=== PATIENT | male | born 1940 | race Caucasian/White ===

== ENCOUNTER 2017-03-14 15:40 | Emergency (ER) | payer OTHER ==
[~2017-03-14] VITALS: Ht 170.2 cm; Wt 68.0 kg
[2017-03-14 17:42] VITALS: BP 132/86
== END 2017-03-14 17:42 | disposition home or self-care (01) ==
LOC: ER 15:40
DX: H92.21 Otorrhagia, right ear (principal); F32.9 Major depressive disorder, single episode, unspecified; K59.00 Constipation, unspecified; I25.2 Old myocardial infarction; Z95.5 Presence of coronary angioplasty implant and graft

== ENCOUNTER → 2017-06-22 | Outpatient (CLI) | payer OTHER ==
--- NOTE | ~2017-06-22 | EXE ---
[facility] [place] [address] STRESS ECHOCARDIOGRAM Name: CLARITZA TROY Room #: REG [facility]WORK[facility] [id number] Admission: 06/22/17 Attend Phys: Jamel Gaxiola MD Discharge: Date of : 42 Date of Service: 06/22/17 1024 Report #: [id number] THIS REPORT FOR: //name// APPROVED REPORT Exam: Stress Echocardiogram Indication: CAD , Hyperlipidemia, Hypertension Patient Location: Out-Patient Stress Nurse: Melina Lorenz RN Room #: Echo lab Ht: 5 ft 7 in HR: 61 bpm BP: 118/76 mmHg Medical History Medical History: Diabetes, HTN, Hyperlipidemia, CAD s/p stent Cardiac Risk Factors: HTN, Hyperlipidemia, DM, , Tobacco History (Former) Previous Cardiac Procedures: PCI Exercise History: Indeterminate Procedure The patient underwent an Exercise Stress Test using the Brenton Protocol. Blood pressure, heart rate, and EKG were monitored. An Echocardiogram was performed by geothermal hvac technician in four stages in quad fashion. At peak stress, four selected images were obtained and placed side by side with resting images for comparison. Stress Test Details Stress Test: Exercise stress testing was performed using a Brenton protocol. HR Resting HR: 61 bpm Max Heart Rate (APMHR): 144 bpm Max HR Achieved: 153 bpm Target HR (85% APMHR): 122 bpm % of APMHR: 106 Recovery HR: 85 bpm HR response to stress: Normal HR response to stress BP Resting BP: 118/76 mmHg Max BP: 150/78 mmHg Recovery BP: 118/70 mmHg ECG Resting ECG: Sinus Rhythm [facility] [address] [place] [address] STRESS ECHOCARDIOGRAM Name: PARAMJITSHORTYCLARITZA Leila Room #: REG CL [facility]#: [id number] Admission: 06/22/17 Attend Phys: Jamel Gaxiola MD Discharge: Date of : 42 Date of Service: 06/22/17 [facility] Report #: [id number] Stress ECG: Sinus Rhythm, nonspecific ST-T abnormalities ST Change: Non-ischemic Clinical Reason for Termination: Maximal effort Exercise duration: 9 min 32 sec Highest Stage Achieved: Stage 4: 4.2 mph at 16% grade. Exercise capacity: 11.8 METs Pre-Stress Echo The resting Echocardiogram showed normal left ventricular contractility with an estimated Ejection Fraction of about 55%. Normal wall motion in all segments on baseline images. Post-Stress Echo The stress Echocardiogram showed normal left ventricular contractility with an estimated Ejection Fraction of about 65%. Normal augmentation of wall motion in all segments on post stress images. Clinical Normal augmentation of myocardial wall segments using a 17 segment model. Conclusion Clinical Response: Non-ischemic Exercise Capacity: Average Stress ECG Response: Non-ischemic Stress Echo Images: Non-ischemic No clinical, EKG or echocardiographic evidence for ischemia. Other Information Study Quality: Good <Conclusion> No clinical, EKG or echocardiographic evidence for ischemia. <ELECTRONICALLY SIGNED> By: Jamel Gaxiola MD 06/22/17 1024 1024 1024 Jamel Gaxiola MD /INF
== END ==
LOC: CV 08:04
DX: I25.10 Atherosclerotic heart disease of native coronary artery without angina pectoris (principal); I10 Essential (primary) hypertension; E78.5 Hyperlipidemia, unspecified

== ENCOUNTER → 2017-12-25 | Outpatient (CLI) | payer OTHER ==
--- NOTE | ~2017-12-25 | 2DMMODE ---
[facility] [place] [address] 2 D/M-MODE ECHOCARDIOGRAM Name: CLARITZA TROY Room #: REG CL [facility]#: [id number] Admission: 12/25/17 Attend Phys: Jamel Gaxiola MD Discharge: Date of : 42 Date of Service: 12/25/17 1347 Report #: [id number] THIS REPORT FOR: //name// APPROVED REPORT Study performed: 12/25/2017 13:03:41 EXAM: Comprehensive 2D, Doppler, and color-flow Echocardiogram Patient Location: Out-Patient Status: routine BSA: 1.78 HR: 84 bpm BP: 134/72 mmHg Rhythm: NSR Other Information Study Quality: Adequate Indications Hypertension. Hx: CAD, stent, CM, DM, HLP 2D Dimensions RVDd: 32.80 mm LVEF(%): 66.76 (>50%) IVSd: 11.31 (7-11mm) LVOT Diam: 21.51 (18-24mm) LVDd: 41.85 mm PWd: 11.29 (7-11mm) Ascending Ao: 32.13 (22-36mm) LVDs: 26.54 (25-40mm) Aortic Root: 35.66 mm Love's LVEF: 66.76 % Volumes Left Atrial Volume (Systole) Single Plane 4CH: 23.68 mL Single Plane 2CH: 19.34 mL LA ESV Index: 14.00 mL/m2 Aortic Valve AoV Peak Leroy.: 1.23 m/s AO Peak Gr.: 6.09 mmHg LVOT Max P.19 mmHg LVOT Max V: 0.89 m/s BRENDA Vmax: 2.63 cm2 Mitral Valve E/A Ratio: 0.8 MV Decel. Time: 257.62 ms [facility] [place] [address] 2 D/M-MODE ECHOCARDIOGRAM Name: CLARITZA TROY Room #: REG [facility]#: [id number] Admission: 12/25/17 Attend Phys: Jamel Gaxiola MD Discharge: Date of : 42 Date of Service: 12/25/17 1347 Report #: [id number] MV E Max Leroy.: 0.70 m/s MV A Leroy.: 0.92 m/s MV PHT: 74.71 ms IVRT: 76.12 ms Pulmonary Valve PV Peak Leroy.: 1.20 m/s PV Peak Gr.: 5.74 mmHg Pulmonary Vein P Vein S: 0.81 m/s P Vein A: 0.35 m/s P Vein D: 0.45 m/s P Vein A Dur.: 96.9 msec P Vein S/D Ratio: 1.80 Tricuspid Valve TR Peak Leroy.: 2.42 m/s RAP Estimate: 5.00 mmHg TR Peak Gr.: 23.47 mmHg PA Pressure: 28.00 mmHg Left Ventricle The left ventricle is normal size. There is normal left ventricular wall thickness. Left ventricular systolic function is normal. LVEF is 55%. Mild diastolic dysfunction is present (impaired relaxation pattern). Right Ventricle The right ventricle is normal size. The right ventricular systolic function is normal. Atria The left atrium size is normal. The right atrium size is normal. Aortic Valve Aortic valve leaflets are mildly thickened. No aortic regurgitation is present. There is no aortic valvular stenosis. Mitral Valve The mitral valve is normal in structure. Trace mitral regurgitation. Tricuspid Valve The tricuspid valve is normal in structure. Trace tricuspid regurgitation. Estimated PAP is 25-30mmHg. Pulmonic Valve The pulmonary valve is normal in structure. Trace pulmonic [address] [address] 2 D/M-MODE ECHOCARDIOGRAM Name: CLARITZA TROY Room #: REG CL Jeremy#: [id number] Admission: 12/25/17 Attend Phys: Jamel Gaxiola MD Discharge: Date of : 42 Date of Service: 12/25/17 1347 Report #: [id number] regurgitation. Great Vessels The aortic root is normal in size. The ascending aorta is normal in size. IVC is normal in size and collapses >50% with inspiration. Pericardium There is no pericardial effusion. <Conclusion> The left ventricle is normal size. There is normal left ventricular wall thickness. Left ventricular systolic function is normal. Mild diastolic dysfunction is present (impaired relaxation pattern). The right ventricle is normal size. The left atrium size is normal. There is no aortic valvular stenosis. Trace mitral regurgitation. Trace tricuspid regurgitation. Estimated PAP is 25-30mmHg. <ELECTRONICALLY SIGNED> By: Jamel Gaxiola MD 12/25/17 1347 1347 134 Jamel Gaxiola MD /INF
== END ==
LOC: CV 12:59
DX: I11.0 Hypertensive heart disease with heart failure (principal); I50.30 Unspecified diastolic (congestive) heart failure; I25.10 Atherosclerotic heart disease of native coronary artery without angina pectoris; E11.9 Type 2 diabetes mellitus without complications; E78.5 Hyperlipidemia, unspecified

== ENCOUNTER → 2019-12-13 | Outpatient (CLI) | payer OTHER | LOC: SJCVCIMAG 14:00 | DX: R94.31 Abnormal electrocardiogram [ECG] [EKG] (principal); I25.10 Atherosclerotic heart disease of native coronary artery without angina pectoris; I10 Essential (primary) hypertension; E78.00 Pure hypercholesterolemia, unspecified; E11.9 Type 2 diabetes mellitus without complications; Z88.1 Allergy status to other antibiotic agents; Z88.8 Allergy status to other drugs, medicaments and biological substances; Z79.82 Long term (current) use of aspirin; Z79.84 Long term (current) use of oral hypoglycemic drugs; Z79.899 Other long term (current) drug therapy; Z87.891 Personal history of nicotine dependence ==

== ENCOUNTER → 2020-06-11 | Outpatient (CLI) | payer OTHER | LOC: SJCVCIMAG 12:36 | PROVIDERS: ATTEND Internal Medicine Cardiovascular Disease | DX: R00.1 Bradycardia, unspecified (principal); R94.31 Abnormal electrocardiogram [ECG] [EKG]; I25.10 Atherosclerotic heart disease of native coronary artery without angina pectoris; I10 Essential (primary) hypertension; E78.00 Pure hypercholesterolemia, unspecified; E11.9 Type 2 diabetes mellitus without complications; Z79.82 Long term (current) use of aspirin; Z79.899 Other long term (current) drug therapy; Z82.49 Family history of ischemic heart disease and other diseases of the circulatory system; Z87.891 Personal history of nicotine dependence ==

== ENCOUNTER → 2020-12-15 | Outpatient (CLI) | payer OTHER | LOC: SJCVC 09:26 | PROVIDERS: ATTEND Internal Medicine Cardiovascular Disease | DX: R94.31 Abnormal electrocardiogram [ECG] [EKG] (principal); I25.10 Atherosclerotic heart disease of native coronary artery without angina pectoris; I10 Essential (primary) hypertension; E78.00 Pure hypercholesterolemia, unspecified; E11.9 Type 2 diabetes mellitus without complications; Z88.2 Allergy status to sulfonamides; Z88.8 Allergy status to other drugs, medicaments and biological substances; Z79.82 Long term (current) use of aspirin; Z79.84 Long term (current) use of oral hypoglycemic drugs; Z79.899 Other long term (current) drug therapy; Z87.891 Personal history of nicotine dependence; Z98.890 Other specified postprocedural states ==

== ENCOUNTER → 2021-06-14 | Outpatient (CLI) | payer OTHER | LOC: SJCVCIMAG 08:45 | PROVIDERS: ATTEND Internal Medicine Cardiovascular Disease | DX: I25.10 Atherosclerotic heart disease of native coronary artery without angina pectoris (principal); I10 Essential (primary) hypertension; E78.00 Pure hypercholesterolemia, unspecified; E11.9 Type 2 diabetes mellitus without complications; I25.2 Old myocardial infarction; I25.5 Ischemic cardiomyopathy; Z95.5 Presence of coronary angioplasty implant and graft; Z88.8 Allergy status to other drugs, medicaments and biological substances; Z79.82 Long term (current) use of aspirin; Z79.84 Long term (current) use of oral hypoglycemic drugs; Z79.899 Other long term (current) drug therapy; Z87.891 Personal history of nicotine dependence; Z82.49 Family history of ischemic heart disease and other diseases of the circulatory system ==

== ENCOUNTER → 2021-12-20 | Outpatient (CLI) | payer OTHER | LOC: SJCVC 10:36 | PROVIDERS: ATTEND Internal Medicine Cardiovascular Disease | DX: R94.31 Abnormal electrocardiogram [ECG] [EKG] (principal); I25.10 Atherosclerotic heart disease of native coronary artery without angina pectoris; I10 Essential (primary) hypertension; E78.00 Pure hypercholesterolemia, unspecified; E11.9 Type 2 diabetes mellitus without complications; Z88.2 Allergy status to sulfonamides; Z88.8 Allergy status to other drugs, medicaments and biological substances; Z79.82 Long term (current) use of aspirin; Z79.84 Long term (current) use of oral hypoglycemic drugs; Z79.899 Other long term (current) drug therapy; Z87.891 Personal history of nicotine dependence; Z82.49 Family history of ischemic heart disease and other diseases of the circulatory system ==